=== PATIENT | female | born 1990 | race Caucasian/White ===

== ENCOUNTER 2017-05-12 12:03 | Emergency (ER) | payer OTHER ==
[~2017-05-12] VITALS: Ht 167.6 cm; Wt 83.3 kg
[~2017-05-12 12:03] MED LIST: ETOD400T PO; FLUO40CA8 PO; IBUP600T44 PO; OMEP20TA PO
[2017-05-12 12:08] VITALS: TEMP 36.8; Ht 167.6 cm; Wt 83.3 kg
[2017-05-12] MEDS ORDERED: ETON1IMP2 (12:33)
[2017-05-12] MEDS ORDERED: CITA10TA4 PO (12:33)
[2017-05-12] MEDS ORDERED: PRED10TA PO (12:33)
--- NOTE | 2017-05-12 12:45 | EMERGENCY ROOM VISIT NOTE ---
History First contact with patient: 12:14 Chief Complaint: LEG PAIN,LEG INJURY Stated Complaint: LEG PAIN History of Present Illness The patient is a 26 year old female who presents to the Emergency Room with complaints of lower back pain and bilateral leg pain. The patient states that she has had pain in both of her legs for the past 3 years. She saw her primary care provider regarding this approximately 2 weeks ago and had an x-ray performed which was negative. They prescribed her prednisone which she has been taking as prescribed. The patient states that she has been seeing a chiropractor and told that she may have a pinched nerve. The primary care provider told the patient that he would order an MRI after the patient had completed 6 weeks of physical therapy. She went to one day of physical therapy and states that she came here for an MRI because she is not able to go to therapy as frequently as she is scheduled. She states she has been missing work due to the pain. She denies any bowel/bladder incontinence, numbness or weakness of the legs. She denies any fevers. She denies any abdominal pain or urinary symptoms. Review of Systems A complete 10 point review of systems was reviewed with the patient with pertinent positives and negatives as per history of present illness. All else were negative. Past Medical/Surgical History Medical Problems: (1) No Known Active Medical Problems Family History Patient reports no known family medical history. Social History Smoking Status: Never Smoker Alcohol Use: occasionally Housing Status: lives with family Occupation Status: employed Current/Historical Medications Scheduled Citalopram Hydrobromide (Citalopram Hydrobromide), 10 MG PO QAM Etonogestrel (Nexplanon), 1 DOSE UD Prednisone (Prednisone), 10 MG PO DAILY Physical Exam Vital Signs Date Time Temp Pulse Resp B/P (MAP) Pulse Ox O2 Delivery O2 Flow Rate FiO2 05/12/17 12:50 95 18 137/86 97 05/12/17 12:08 36.8 101 16 116/75 93 Room Air Physical Exam VITALS: Vitals are noted on the nurse's note and reviewed by myself. Vital signs stable. GENERAL: This is a 26-year-old female, in no acute distress, nondiaphoretic, well-developed well-nourished. SKIN: The skin was without rashes. HEART: Regular rate and rhythm without murmurs gallops or rubs. LUNGS: Clear to auscultation bilaterally without wheezes, rales or rhonchi. ABDOMEN: Soft, nontender to palpation. MUSCULOSKELETAL: Vague tenderness over the lumbar region. Full range of motion of bilateral lower extremities. Strength 5/5 in bilateral lower extremities. Patellar reflexes 2+ bilaterally. Negative straight leg raise test. NEURO: Patient was alert and oriented to person place and time. Normal sensation to light and sharp touch. Deep tendon reflexes 2+ throughout. No focal neurological deficits. Medical Decision & Procedures Medical Decision Differential diagnosis includes cauda equina syndrome, cord compression, disc herniation, muscle spasm, lumbar strain, epidural abscess, malignancy, transverse myelitis, urinary tract infection, colitis, diverticulitis, kidney stone, among others. The patient is a 26-year-old female who presents today complaining of back pain with radiation into bilateral legs. Exam is unremarkable. Strength and reflexes are normal. The patient has no bowel/bladder incontinence, numbness or weakness to suggest cauda equina syndrome or cord compression. I do not feel that an emergent MRI is necessary. I had a lengthy discussion with the patient and explained to her why I did not feel an MRI needed to be performed today. I did offer to perform an MRI, but told her that the insurance company would be unlikely to take for this. I recommended that the patient follow up with her primary care provider and continue the prednisone as prescribed. The patient was agreeable to this. She verbalized understanding of my assessment and treatment plan and was discharged home in good condition. Medication Reconcilliation Current Medication List: was personally reviewed by me Blood Pressure Screening Patient's blood pressure: Normal blood pressure Impression Primary Impression: Radicular low back pain Departure Information Dispostion Home / Self-Care Condition GOOD Referrals Lanette Villatoro D.O. (PCP) Patient Instructions [facility] Additional Instructions Finish the prednisone as prescribed. Follow-up with your primary care provider this week. Continue physical therapy. return to the emergency department for any bowel/bladder incontinence, fever, or new onset numbness/weakness of legs.
[2017-05-12 12:50] VITALS: BP 137/86; PULSE 95; O2SAT 97
== END 2017-05-12 12:55 | disposition home or self-care (01) ==
LOC: C.EDB 12:04 → C.EDC 12:55
DX: M54.9 Dorsalgia, unspecified (principal)

== ENCOUNTER 2017-10-26 09:08 | Emergency (ER) | payer OTHER ==
[~2017-10-26] VITALS: Ht 170.2 cm; Wt 86.0 kg
[~2017-10-26 09:08] MED LIST changes: +CITA10TA4 PO; -ETOD400T PO; +ETON1IMP2; -FLUO40CA8 PO; -IBUP600T44 PO; -OMEP20TA PO; +PRED10TA PO
[2017-10-26 09:25] VITALS: BP 114/55; PULSE 84; TEMP 36.6; O2SAT 96; Ht 170.2 cm; Wt 86.0 kg
--- NOTE | 2017-10-26 10:18 | DIAGNOSTIC IMAGING REPORT ---
L ANKLE MIN 3 VIEWS ROUTINE CLINICAL HISTORY: Left ankle pain following fall. COMPARISON: None FINDINGS: Alignment of the left ankle is anatomic. There is mild lateral ankle soft tissue swelling. There is no acute fracture. Talar dome is intact. Subtle irregularity of the fibular tip is likely chronic. IMPRESSION: 1. No acute fracture or dislocation of the left ankle. 2. Mild lateral ankle soft tissue swelling. 3. Mild fibular tip irregularity which is likely chronic. Electronically signed by: Leonardo Reyes M.D. 10/26/2017 10:17 AM Dictated Date/Time: 10/26/2017 10:16 AM
--- NOTE | 2017-10-26 16:54 | EMERGENCY ROOM VISIT NOTE ---
ED Visit Note First contact with patient: 09:24 Chief complaint: Left ankle pain. HPI: This 27-year-old white female presents to the emergency room for evaluation of her left ankle. The patient injured the ankle last night when walking down the steps. Her foot inverted and rolled. Since that time, they have had persistent pain over the lateral portion of the ankle. She denies any numbness or tingling. Pain is worse with weight-bearing. She has been walking with a limp. no knee or hip pain. No pop or snap with injury. Treatment has consisted of ice provided in the ER. No prior history of significant ankle injury. Pain is 6/10. Her accompanies her today. REVIEW OF SYSTEM: HEENT: No dizziness, visual problems, hearing loss, tinnitus. There is no difficulty swallowing and no oral lesions are present. PULMONARY: No cough, shortness of breath, sputum production or hemoptysis. CARDIOVASCULAR: No chest pain, palpitations, shortness of breath or peripheral edema. GASTROINTESTINAL: No diarrhea, constipation, nausea, vomiting, or abdominal pain. GENITOURINARY: No dysuria, frequency, urgency or nocturia. NEUROLOGIC: No weakness, muscle tenderness, epilepsy or history of neurological problems. MUSCULOSKELETAL: No history of joint tenderness/swelling. No history of arthritis or arthralgias. SKIN: No rashes or lesions. PSYCHIATRIC: No history of depression or mental illness. ENDOCRINE: No history of diabetes, thyroid disorders, abnormal hair growth. PAST MEDICAL HISTORY: Supplemental sheet was reviewed. Previous surgeries: None Medical history: Benign Current medications: Filed in patient's chart Allergies: Fentanyl Family history: Noncontributory Social history: . Employed. No tobacco use. PHYSICAL EXAM: Vitals: Afebrile. Reviewed and filed in patient's chart General: Well-developed, well-nourished, young white female, in obvious discomfort. No acute distress. She is sitting in a wheelchair. Alert and oriented. Skin:Warm and dry with good turgor. No rashes or lesions. No erythema. The patient is not diaphoretic. No abrasions. Mild edema is present over the lateral malleolus. Musculoskeletal: Left ankle evaluation reveals no pain with palpation across the knee or proximal tibia or fibula. There is pain with palpation over the lateral malleolus and the lateral ligaments. No pain over the medial malleolus or deltoid ligament. Achilles' tendon is palpated to its entirety and found to be intact and without defect. Normal Jean Baptiste test. No pain with palpation of the calcaneus, fifth metatarsal base, midfoot, forefoot, or toes. Motor function to the toes is intact and unremarkable. Motor function to the ankle is intact but range of motion is limited by pain. Strength is 5/5 for resisted motion. Positive anterior drawer, negative calcaneal tilt. Neurologic: Gross sensation is intact across all aspects of the foot and ankle via soft touch. Peripheral pulses are 2+. Data: Radiographic images of the ankle were obtained today and were reviewed by me as well as radiology. They are unremarkable for fracture or other bony abnormality. IMPRESSION: Left ankle sprain. PLAN: The patient was educated regarding today's findings. Conservative care measures were discussed. Patient was given compressigrip for edema control and will use this for the next 5 days. Ankle gel splint was also applied and will be used for support for the next 3 weeks. It may be removed for bathing and sleep. It should be used for a few additional weeks for sporting events only. Crutches were offered but the patient declined. Weight-bear as tolerable. Gentle motion daily. Ice and elevate intermittently over the next 3 days, after which she may switch to moist heat. Lower leg should be elevated at night during sleep. Tylenol and ibuprofen every 6 hours as needed for discomfort. Sprain handout was provided. Return to the ER for any acute changes. Follow-up with her PCP or orthopedist if not improving in 5 to 7 days. 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 Current/Historical Medications No Active Prescriptions or Reported Meds Allergies Coded Allergies: Fentanyl (Unverified Allergy, Unknown, rash, 10/26/17) Vital Signs Date Time Temp Pulse Resp B/P (MAP) Pulse Ox O2 Delivery O2 Flow Rate FiO2 10/26/17 09:25 36.6 84 18 114/55 96 Room Air Departure Information Impression Primary Impression: Left ankle sprain Dispostion Home / Self-Care Condition GOOD Prescriptions No Active Prescriptions or Reported Meds Forms WORK / SCHOOL INSTRUCTIONS, HOME CARE DOCUMENTATION FORM, MOTRIN USE, TYLENOL USE, Work Instructions, Return To Work: 5 days IMPORTANT VISIT INFORMATION Patient Instructions [facility] Additional Instructions weight-bear as tolerable Ice and elevate intermittently x3 days, and then use moist heat Tylenol and ibuprofen every 6 hours as needed for pain Gentle motion daily See your PCP or orthopedist if not improving over 5-7 days Use the compression wrap or sleeve to control swelling Use an ankle splint for support if you're walking with a limp Work Instructions Return To Work: 5 days
== END 2017-10-26 10:57 | disposition home or self-care (01) ==
LOC: C.EDB 09:17
DX: S93.402A Sprain of unspecified ligament of left ankle, initial encounter (principal); W10.9XXA Fall (on) (from) unspecified stairs and steps, initial encounter; Z88.6 Allergy status to analgesic agent

== ENCOUNTER 2022-04-03 14:08 | Inpatient (IN) ==
[2022-04-03] MEDS ORDERED: OXYTOCIN 30 UNITS/500 ML BAG IV PRN ×3 (14:16→21:16)
--- NOTE | 2022-04-03 14:38 | History & Physical Report ---
Date of Service April 03, 2022 Assessment & Plan (1) Gestational diabetes mellitus (GDM) affecting : (2) Encounter for supervision of normal in multigravida, antepartum: (3) Normal labor: Plan Ama is a 31-year-old presents in early labor. Patient was 5 cm in clinic earlier today was noted be 6 cm on recheck. Patient is melanie every 6-8 minutes. Recommended due to the advanced cervical dilation and 3rd baby recommended that she stay. Patient was agreeable plan. 1. Fetus: Cat 1 2. Labor: Early, AROM after admission 3. GBS negative. 4. A1gDM: BG x1 History of Present Illness Primary Care Provider: Carley Clark PA-C Ama is a 31-year-old at 39 weeks 2 days gestational age presents in early labor. Patient denying leakage of fluid or vaginal bleeding and reporting good movement. complicated by: Asthma -follows w/ PCP GDM on insulin (non compliant with GDM, not on insulin) *Wkly NSTs @32wks and Twice wkly @36wks *Serial growth US @28wks *Deliver by EDC Interested in tubal if CSec or Consider signing at 28wk in case of Csec. Obesity (BMI between 35-39 @ beginning of ) *Growth US @ 32 wks *Weekly NSTs @ 36wks OB Labs: Blood Type A Positive 09/04/21 Antibody Screen NEGATIVE 09/04/21 Hemoglobin 13.8 g/dL (12.0-16.0) 12/17/21 Hematocrit 40.4 % (37-47) 12/17/21 Mean Corpuscular Volume 91.8 fL (80-100) 12/17/21 Platelet Count 229 K/uL (130-400) 12/17/21 Rubella IgG Antibody Immune (Immune) 09/04/21 Rapid Plasma Reagin Nonreactive (Nonreactive) 09/04/21 Hepatitis B Surface Antigen Neg (Neg) 09/04/21 Hepatitis C Antibody Neg (Neg) 09/04/21 HIV (1&2) Ab and P24 Ag, 4th Gener Neg (Neg) 09/04/21 Glucose 1 Hour 50 gm Load 160 mg/dl (70-130) H 10/30/21 OB Optional Labs: Chlamydia trachomatis RNA NOT DETECTED (NOT DETECTED) 09/04/21 Neisseria gonorrhoeae RNA NOT DETECTED (NOT DETECTED) 09/04/21 Labs Reviewed: -declines cf/sma - SLN hep c neg low risk panorama declined afp failed 2 hr gtt. Allergies Allergy/AdvReac Type Severity Reaction Status Date / Time amoxicillin Allergy Intermediate Rash Verified 03/29/22 10:51 fentanyl Allergy Intermediate Rash Verified 03/29/22 10:51 promethazine [From Phenergan] Allergy Intermediate Rash Verified 03/29/22 10:51 Home Medications Medication Instructions Recorded Confirmed Type albuterol sulfate 90 mcg/actuation 1 inh inhalation QID PRN Wheezing 02/16/21 04/03/22 History aerosol inhaler prenat.vits,wilmer,[id number] 1 tab PO DAILY 08/27/21 04/03/22 History cetirizine 10 mg tablet 10 mg PO DAILY 09/17/21 04/03/22 History riboflavin (vitamin B2) 50 mg 0 mg PO DAILY 09/17/21 04/03/22 History tablet (Vitamin B-2) acetone (urine) test (Ketone Urine #50 ea 11/05/21 04/03/22 Rx Test) blood sugar diagnostic (OneTouch #150 ea 11/05/21 04/03/22 Rx Verio test strips) blood-glucose meter (OneTouch #1 ea 11/05/21 04/03/22 Rx Verio Flex meter) lancets 33 gauge (OneTouch Delica #150 ea 11/05/21 04/03/22 Rx Plus Lancet) magnesium oxide 400 mg PO DAILY 12/17/21 04/03/22 History psyllium husk [Daily Fiber] PO 01/01/22 04/03/22 History Patient History Medical History Abnormal Pap smear of cervix Asthma Asthma Chicken pox Fall History of chicken pox History of HPV infection Right ovarian cyst Uses contraceptive implant for control Surgical History 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, 2019 pap neg cotest H/O wisdom tooth extraction Hx of cholecystectomy S/P cholecystectomy S/P loop electrosurgical excision procedure [place] teeth extracted Family History Other Unobtainable family history due to adoption Social History Smoking Status: Former smoker Tobacco Type: Cigarettes Hx Alcohol Use: No Hx Substance Use: No Preferred Language: Bangladeshi Communication Ability: Effective Fish Egg Packer Required: No Beliefs That Will Affect Care: None marital status: marital status details: Kem Gallagher (38) [phone] Current Living Situation: Spouse and Family Current Living Situation Comment: Lives with and kids, no pets current occupational status: unemployed current occupation: Homemaker Other Information That Helps Us Care for You: No Feels Safe at Home: Yes Safety Concerns: Feels Safe At This Time caffeine: No Dental Care, Regularly: Yes Seatbelt Use: always Sunscreen Use: Yes Do you think of yourself as: straight/heterosexual Gender Identity: Female Assistive Devices: None Physical Exam Genitourinary: Manual OB Exam: + cervical dilation 6 cm, + cervical effacement 80% and + station -2 OB Exam Monitor Tracing: + external FHT monitor used, + external uterine monitor used, + category I and + normal FHT variability; no early decelerations present, no late decelerations present and no variable decelerations Results & Data ([facility]) Vital Signs (Past 12 Hours) Vital Signs Pulse BP 04/03/22 14:22 103 H 123/68 Coding Level of Care Code None Diagnoses Gestational diabetes mellitus (GDM) affecting O24.419 Encounter for supervision of normal in multigravida, antepartum Z34.80 Normal labor O80; Z37.9
[2022-04-03] MEDS: LACTATED RINGER'S 1,000 ML IV PRN ×2 (15:07→18:48)
[2022-04-03 15:25] LABS: Hematocrit (blood only) 38.4 % (34.1-44.9); Hemoglobin 12.6 g/dl (12.0-16.0); Mean Corpuscular Hemoglobin 29.4 pg (25.0-34.0); Mean Corpuscular Hgb Conc 32.8 g/dL (32.0-36.0); Mean Corpuscular Volume 89.7 fL (80.0-100.0); Mean Platelet Volume 9.1 fL (9.4-12.3); Platelet Count 227 K/uL (130-400); RDW Coefficient of Variation 13.3 % (11.5-14.5); RDW Standard Deviation 43.7 fL (36.4-46.3); Red Blood Count 4.28 M/uL (3.93-5.22); White Blood Count 8.17 K/ul (4.8-10.8)
[2022-04-03] MEDS: ONDANSETRON INJ 2 MG/ML 2 ML VIAL IV PRN ×2 (18:24→22:07)
[2022-04-03] MEDS ORDERED: ONDANSETRON INJ 2 MG/ML 2 ML VIAL IV PRN (18:32)
[2022-04-03] MEDS ORDERED: ePHEDrine sulfate 50 MG/ML AMP IV PRN (18:32)
[2022-04-03] MEDS ORDERED: NALBUPHINE HCL INJ 10 MG/ML AMP IV PRN (18:32)
[2022-04-03] MEDS ORDERED: NALOXONE HCL 0.4 MG/1 ML VIAL/CARP IV PRN (18:32)
[2022-04-03] MEDS ORDERED: fentaNYL 2MCG/ML ROPIVACAINE 1.25MG/ML 100 ML BAG EPI PRN (18:32)
[2022-04-03] MEDS ORDERED: NALOXONE HCL 1 MG in SODIUM CHLORIDE 0.9% 1000ML 1,000 ML IV PRN (18:32)
[2022-04-03] MEDS ORDERED: diphenhydrAMINE 50 MG/ML VIAL IV PRN (18:32)
--- NOTE | 2022-04-03 18:37 | Anesthesiology Consultation ---
Date of Service April 03, 2022 Assessment & Plan Chart Review Chart Review: Patient NOT seen in Pre Admission Testing and Acceptable Risk for Labor Epidural Consults Requested none ASA ASA2 Proposed Anesthesia Anesthesia Type: Labor Epidural and CSE Risk / Benefits Reviewed With: PT / POA / Parent / Guardian, Accepts Plan and Informed Consent Obtained History Height/Weight Height: 5 ft 6 in Weight: 108.862 kg Allergies Allergy/AdvReac Type Severity Reaction Status Date / Time amoxicillin Allergy Intermediate Rash Verified 03/29/22 10:51 fentanyl Allergy Intermediate Rash Verified 03/29/22 10:51 promethazine [From Phenergan] Allergy Intermediate Rash Verified 03/29/22 10:51 Medications Home Medications Medication Instructions Recorded Confirmed Last Taken albuterol sulfate 90 mcg/actuation 1 inh inhalation QID PRN Wheezing 02/16/21 04/03/22 04/02/22 09:00 aerosol inhaler prenat.vits,wilmer,[id number] 1 tab PO DAILY 08/27/21 04/03/22 04/02/22 09:00 acetone (urine) test (Ketone Urine #50 ea 11/05/21 04/03/22 Unknown Test) blood sugar diagnostic (OneTouch #150 ea 11/05/21 04/03/22 Unknown Verio test strips) blood-glucose meter (OneTouch #1 ea 11/05/21 04/03/22 Unknown Verio Flex meter) lancets 33 gauge (OneTouch Delica #150 ea 11/05/21 04/03/22 Unknown Plus Lancet) magnesium oxide 400 mg PO DAILY 12/17/21 04/03/22 12/17/21 psyllium husk [Daily Fiber] 2 gummy PO DAILY 01/01/22 04/03/22 04/02/22 09:00 ascorbic acid (vitamin C) 250 mg 250 mg PO DAILY 04/03/22 04/03/22 04/02/22 09:00 tablet (Vitamin C) folic acid 400 mcg tablet 0.4 mg PO DAILY 04/03/22 04/03/22 04/02/22 09:00 Active Medications Generic Name Dose Route Start Last Admin Trade Name Freq PRN Reason Stop Dose Admin Lactated Ringer's 1,000 mls @ 125 mls/hr 04/03/22 14:16 04/03/22 18:09 Lr IV 04/05/22 14:15 999 mls/hr .Q8H PRN Infusion L&D Protocol Protocol Ondansetron HCl 4 mg 04/03/22 17:53 04/03/22 18:24 Ondansetron Inj 2 Mg/Ml 2 Ml Vial IV 05/03/22 17:52 4 mg Q4H PRN Administration Nausea NPO Date Last Intake of Fluids: 04/03/22 Time Last Intake of Fluids: 18:00 Date Last Intake of Solids: 04/03/22 Time Last Intake of Solids: 13:00 Past Medical History Medical History (Updated 04/03/22 @ 18:34 by Ricky Espinal MD) Asthma Gestational diabetes mellitus (GDM) History of HPV infection Obesity affecting Right ovarian cyst Exercise / Class Metabolic Activity II 4-5 Yardwork/Stairs/Walk up hill Past Family History Family History Other Unobtainable family history due to adoption Past Surgical History Surgical History 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, 2019 pap neg cotest H/O wisdom tooth extraction Hx of cholecystectomy S/P cholecystectomy S/P loop electrosurgical excision procedure [place] teeth extracted Past Anesthesia History No Hx of Anesthesia Complications and No Family Hx of Anesthesia Complications History of PONV No Hx of PONV and No Hx of Motion Sickness Social History Smoking Status: Former smoker Hx Alcohol Use: No Hx Substance Use: No substance use type: does not use Review of Systems no chest pain or sob Physical Exam Vital Signs Last Vital Signs Temp 37.1 C 04/03/22 17:00 Pulse 90 04/03/22 18:33 Resp 20 04/03/22 18:13 BP 122/66 04/03/22 18:13 Pulse Ox 100 04/03/22 18:33 ENMT Mouth: no TMJ abnormality Thyromental Distance: > or= 3.5 Finger Breadths Mallampati Class: II Neck normal visual inspection Respiratory normal respiratory effort Auscultation: lungs clear to auscultation bilaterally Cardiovascular Rate/Rhythm: regular rate and regular rhythm Musculoskeletal Spine: normal cervical ROM Neurologic moves all extremities Psychiatric Orientation: alert and oriented x 3 Testing Laboratory Results 04/03/22 14:51 Blood Type A Positive 04/03/22 14:51 Antibody Screen NEGATIVE 04/03/22 14:51 04/03/22 15:10 POC Glucose 129 H
[2022-04-03] MEDS ORDERED: ePHEDrine sulfate 50 MG/ML AMP ONE (19:07)
[2022-04-03] MEDS ORDERED: SODIUM CHLORIDE 0.9% INJ 10 ML VIAL ONE (19:08)
[2022-04-03] MEDS ORDERED: fentaNYL citrate 100 MCG/2 ML VIAL ONE (19:08)
[2022-04-03] MEDS ORDERED: fentaNYL 2MCG/ML ROPIVACAINE 1.25MG/ML 100 ML BAG EPI ONE (19:08)
[2022-04-03] MEDS ORDERED: LIDOCAINE 2%/EPINEPHRINE 1:200,000 20 ML SDV ONE (19:08)
[2022-04-03] MEDS ORDERED: BUPIVACAINE 0.25% 30 ML VIAL ONE (19:08)
[2022-04-03] MEDS ORDERED: BENZOCAINE 20% AER SPR 82.5 GM CAN EXT PRN (21:16)
[2022-04-03] MEDS ORDERED: HYDROCORTISONE ACETATE 25 MG SUPP PR PRN (21:16)
[2022-04-03] MEDS ORDERED: bisacodyL 10 MG SUPP PR PRN (21:16)
[2022-04-03] MEDS ORDERED: DIPHTHERIA/TETANUS/PERTUSSIS 0.5 ML SYR/VIAL IM ONE (21:16)
[2022-04-03] MEDS: ACETAMINOPHEN 325 MG TAB PO PRN (21:51)
[2022-04-03] MEDS: IBUPROFEN 600 MG TAB PO PRN (21:51)
--- NOTE | 2022-04-03 23:00 | Delivery Summary ---
DATE OF SERVICE: 04/03/2022 PROCEDURE: Normal spontaneous vaginal delivery. SURGEON: Talon Ryan MD. PREOPERATIVE DIAGNOSES: 1. Single intrauterine at 39 weeks 2 days gestational age. 2. A1 gestational diabetes. 3. Body mass index greater than 35. POSTOPERATIVE DIAGNOSES: 1. Single intrauterine at 39 weeks 2 days gestational age. 2. A1 gestational diabetes. 3. Body mass index greater than 35. 4. Status post procedure. ESTIMATED BLOOD LOSS: 200 mL. DRAINS: None. FLUIDS: Continuous lactated Ringer. URINE OUTPUT: Not measured. COMPLICATIONS: None. FINDINGS: Viable male infant with weight and Apgars pending. INDICATIONS: Ama is a 31-year-old , at 39 weeks 2 days gestational age, presented in early l abor. The patient underwent artificial rupture of membranes, later received an epidural for anesthes ia and was started on oxytocin per regular protocol. The patient progressed in labor rapidly after s tarting oxytocin to complete-complete, +2 station, pushed over approximately 2 contractions to achiev e delivery. DESCRIPTION OF PROCEDURE: The patient progressed to 10 cm dilated, 100% effaced, positive 2 station, pushed over intact perineum with epidural anesthesia and delivered a viable male infant, weight and Apgars as noted above. Head of the delivered in ISHAN position, restituted right transverse. No nuchal cord was noted. Body and shoulders quickly followed. was noted to be vigorous adalberto n after delivery and 1 minute delayed cord clamping was initiated. Cord was then double clamped and cut. remained on maternal abdomen. Cord blood was obtained. Attention was then turned to d elivery of the placenta, which was delivered intact with 3-vessel cord, gentle cord traction. On ins pection of the perineum, vagina, cervix, there was noted to be no lacerations. Sponge and instrument counts were correct at the completion of the case. Both mother and stable in the immediate p ost-delivery period. Job ID: [id number]
[2022-04-04] MEDS ORDERED: diphenhydrAMINE Capsule 25 MG CAP PO ONE (01:07)
[2022-04-04] MEDS: IBUPROFEN 600 MG TAB PO PRN ×4 (02:20→20:16)
[2022-04-04] MEDS: ACETAMINOPHEN 325 MG TAB PO PRN ×3 (02:20→16:38)
--- NOTE | 2022-04-04 06:43 | Obstetrical Progress Note ---
Date of Service <Chloe Paez DO - Last Filed: 04/04/22 06:43> April 04, 2022 Assessment & Plan <Chloe Ethel Paez DO - Last Filed: 04/04/22 06:43> (1) : Patient is PPD day 1 s/p and doing well. - Feels well today. Eating well, voiding well, ambulating well - Vitals stable - Pain well controlled with ibuprofen 600 mg Q4H PRN - OOB, ambulation, diet progression as tolerated - Plan to discharge tomorrow - After discharge, 6 week follow up with <Talon Ryan MD - Last Filed: 04/04/22 08:15> (1) : Subjective <Chloe Ethel Paez DO - Last Filed: 04/04/22 06:43> Ama Gallagher is a 31 yo female who is now PPD #1 following spontaneous vaginal delivery at 39 weeks. Reports feeling well this morning. Some abdominal cramping and pain well managed on analgesics. Voiding without issue. Tolerating light meals overnight and able to ambulate some. Endorses passing gas but no bowel movements. Some persistent lochia with some improvement this morning. Currently using a combination of breast and bottle feeding. Review of Systems Denies fever, chills, sweats. Denies SOB, difficulty breathing, chest pain, palpitations, and chest pressure. Denies breast pain. Denies dysuria. Denies headache or changes in vision. Physical Exam <Chloe Paez DO - Last Filed: 04/04/22 06:43> General: Alert and oriented. No acute distress. CV: Regular rate and rhythm. No murmurs. Respiratory: CTA bilaterally. No rhonchi, wheezes, or crackles. No increased work of breathing. Abdomen: Positive bowel sounds. Soft, nontender, non distended. Uterus: Fundus firm and palpable 2 cm below the umbilicus. Lower extremities: No LE edema. No deep calf pain. Jovita's negative bilaterally. Results & Data ([facility]) <Chloe Paez DO - Last Filed: 04/04/22 06:43> Vital Signs (Past 12 Hours) Vital Signs Temp Pulse Pulse Resp BP BP Pulse Ox 04/04/22 03:54 36.6 C 67 16 106/72 98 04/04/22 00:32 36.4 C L 79 16 95/59 L 97 04/03/22 19:15 04/03/22 19:15 36.4 C L 15 98 04/03/22 23:01 81 100/57 L 04/03/22 22:46 81 111/58 L 04/03/22 22:31 80 105/56 L 04/03/22 22:16 86 111/61 04/03/22 22:01 79 110/63 04/03/22 21:53 81 98 04/03/22 21:48 85 97 04/03/22 21:46 80 107/57 L 04/03/22 21:43 82 96 04/03/22 21:38 76 98 04/03/22 21:33 80 95 04/03/22 21:32 79 106/55 L 04/03/22 21:28 84 97 04/03/22 21:23 85 96 04/03/22 21:18 81 97 04/03/22 21:06 36.8 C 04/03/22 21:17 75 107/57 L 04/03/22 21:13 81 97 04/03/22 21:08 81 98 04/03/22 21:03 86 98 04/03/22 21:01 93 H 112/65 04/03/22 20:58 90 97 04/03/22 20:55 92 H 115/61 04/03/22 20:53 95 H 100 04/03/22 20:48 93 H 99 04/03/22 20:43 96 H 98 04/03/22 20:40 92 H 121/58 L 04/03/22 20:38 94 H 99 04/03/22 20:33 95 H 99 04/03/22 20:28 95 H 98 04/03/22 20:23 82 98 04/03/22 20:18 83 99 04/03/22 20:13 81 98 04/03/22 20:10 90 112/58 L 04/03/22 20:08 84 99 04/03/22 20:03 93 H 98 04/03/22 19:58 91 H 99 04/03/22 19:53 95 H 99 04/03/22 19:54 72 116/56 L 04/03/22 19:48 92 H 98 04/03/22 19:43 84 98 04/03/22 19:41 87 116/57 L 04/03/22 19:38 87 99 04/03/22 19:33 91 H 98 04/03/22 19:28 87 98 04/03/22 19:23 90 99 04/03/22 19:24 89 111/66 04/03/22 19:18 90 100 04/03/22 19:17 89 113/59 L 04/03/22 19:15 36.4 C L 88 15 111/58 L 04/03/22 19:13 99 04/03/22 19:13 93 H 04/03/22 19:13 93 H 110/59 L 04/03/22 19:11 89 111/63 04/03/22 19:09 96 H 110/64 04/03/22 19:08 93 H 99 04/03/22 19:07 93 H 20 106/66 04/03/22 19:05 91 H 102/57 L 04/03/22 19:03 94 H 98 04/03/22 19:02 90 96/52 L 04/03/22 19:00 90 93 04/03/22 18:58 98 H 99 04/03/22 18:57 94 H 105/56 L 04/03/22 18:55 102 H 20 107/58 L 04/03/22 18:53 81 99 04/03/22 18:48 107 H 99 04/03/22 18:43 106 H 100 O2 Del Method O2 Del Method 04/04/22 03:54 Room Air 04/04/22 00:32 Room Air 04/03/22 19:15 Room Air 04/03/22 19:15 Room Air 04/03/22 23:01 04/03/22 22:46 04/03/22 22:31 04/03/22 22:16 04/03/22 22:01 04/03/22 21:53 04/03/22 21:48 04/03/22 21:46 04/03/22 21:43 04/03/22 21:38 04/03/22 21:33 04/03/22 21:32 04/03/22 21:28 04/03/22 21:23 04/03/22 21:18 04/03/22 21:06 04/03/22 21:17 04/03/22 21:13 04/03/22 21:08 04/03/22 21:03 04/03/22 21:01 04/03/22 20:58 04/03/22 20:55 04/03/22 20:53 04/03/22 20:48 04/03/22 20:43 04/03/22 20:40 04/03/22 20:38 04/03/22 20:33 04/03/22 20:28 04/03/22 20:23 04/03/22 20:18 04/03/22 20:13 04/03/22 20:10 04/03/22 20:08 04/03/22 20:03 04/03/22 19:58 04/03/22 19:53 04/03/22 19:54 04/03/22 19:48 04/03/22 19:43 04/03/22 19:41 04/03/22 19:38 04/03/22 19:33 04/03/22 19:28 04/03/22 19:23 04/03/22 19:24 04/03/22 19:18 04/03/22 19:17 04/03/22 19:15 04/03/22 19:13 04/03/22 19:13 04/03/22 19:13 04/03/22 19:11 04/03/22 19:09 04/03/22 19:08 04/03/22 19:07 04/03/22 19:05 04/03/22 19:03 04/03/22 19:02 04/03/22 19:00 04/03/22 18:58 04/03/22 18:57 04/03/22 18:55 04/03/22 18:53 04/03/22 18:48 04/03/22 18:43 <Talon Ryan MD - Last Filed: 04/04/22 08:15> Co-Signing Physician Notes Patient seen and evaluated with resident and agree with the above findings and plan. Routine care Resident Activity Tracking <Chloe Paez DO - Last Filed: 04/04/22 06:43> Resident Involvement: Resident Care Provided Care Provided: OB Delivery
[2022-04-04] MEDS ORDERED: PRENATAL VITAMIN 1 TAB PO SCH (08:00)
[2022-04-04] MEDS ORDERED: FERROUS SULFATE 325 MG TAB PO SCH (08:00)
[2022-04-04] MEDS: DOCUSATE SODIUM 100 MG CAP PO SCH ×2 (08:52→21:12)
--- NOTE | 2022-04-04 09:16 | Anesthesia Procedure Note ---
Date of Service April 04, 2022 Anesthesia Post Epidural Note Vital Signs Vital Signs: Temp Pulse Resp BP Pulse Ox O2 Del Method 36.7 C 74 18 109/75 99 04/04/22 07:40 04/04/22 07:40 04/04/22 07:40 04/04/22 07:40 04/04/22 07:40 04/04/22 07:40 Pain Intensity Bilateral Abdomen: Pain Intensity: 0 Head: Pain Intensity: 1 Notes Mental Status: alert / awake / arousable Nausea / Vomiting: adequately controlled Pain: adequately controlled Airway Patency, RR, SpO2: stable & adequate BP & HR: stable & adequate Hydration State: stable & adequate Neuraxial Anesthesia: was administered and sensory block is resolving Anesthetic Complications: no major complications apparent and Pt Satisfied with anesthetic care Epidural: Removed without complications and With tip intact
[2022-04-04] MEDS ORDERED: bisacodyL 5 MG TABEC PO SCH (20:00)
== END 2022-04-04 21:50 | disposition home or self-care (01) | DRG 807 ==
LOC: OPB 14:08 → 4S1 14:10 → 4E2 23:30